=== PATIENT | male | born 1965 | race Caucasian/White ===

== ENCOUNTER 2017-10-26 12:15 | Day surgery (SDC) | payer OTHER, MEDICAID ==
[~2017-10-26 12:15] MED LIST: CEFAZOLIN 1 GM INJ
[2017-10-26 13:46] LABS: ADD MAN DIFF? NO
[2017-10-26 13:50] LABS: BASOPHILS % 0.4 % (0.0-2.0); EOSINOPHILS # 0.1 10^3/ul (0.0-0.5); EOSINOPHILS % 1.1 % (0.0-7.0); HEMATOCRIT 42.2 % (42.0-52.0); HEMOGLOBIN 14.1 g/dl (14.0-18.0); LYMPHOCYTES # 2.6 10^3/ul (0.8-2.9); MEAN CORPUSCULAR HEMOGLOBIN 32.3 pg (29.0-33.0); MEAN CORPUSCULAR HGB CONC 33.4 g/dl (32.0-37.0); MEAN CORPUSCULAR VOLUME 96.8 fl (82.0-101.0); MEAN PLATELET VOLUME 10.6 fl (7.4-10.4); MONOCYTE # 0.5 10^3/ul (0.3-0.9); NEUTROPHIL # 5.1 10^3/ul (1.6-7.5); PLATELET COUNT 181 10^3/UL (140-415); RED BLOOD COUNT 4.36 10^6/ul (4.70-6.10); RED CELL DISTRIBUTION WIDTH 13.7 % (11.5-14.5)
[2017-10-26 13:50] LABS: WHITE BLOOD COUNT 8.4 10^3/ul (4.8-10.8)
[2017-10-26 13:54] LABS: INR 0.98; PROTIME 13.1 Sec (11.9-14.9)
[2017-10-26 13:55] LABS: ANION GAP 11 (8-16); BLOOD UREA NITROGEN 19 mg/dl (7-20); CALCIUM 9.4 mg/dl (8.4-10.2); CARBON DIOXIDE 26 mmol/L (21-31); CHLORIDE 108 mmol/L (97-110); CREATININE 1.02 mg/dl (0.61-1.24); GLUCOSE 100 mg/dl (70-220); PARTIAL THROMBOPLASTIN TIME 30.5 Sec (25.0-35.0); POTASSIUM 4.2 mmol/L (3.5-5.1); SODIUM 141 mmol/L (135-144)
[2017-10-26] MEDS ORDERED: CEFAZOLIN 2 GM/50 ML (PMX) 50 ML IVPB (14:01)
[2017-10-26] MEDS ORDERED: LACTATED RINGER'S 1,000 ML IV* (14:30)
[2017-10-26] MEDS ORDERED: MEPERIDINE 25 MG INJ IV (15:00)
[2017-10-26] MEDS ORDERED: hydrALAzine 20 MG INJ IV (15:00)
[2017-10-26] MEDS ORDERED: HYDROmorphONE 1 MG/5 ML IV SYRINGE IV (15:00)
[2017-10-26] MEDS ORDERED: PROCHLORPERAZINE 10 MG INJ IV (15:00)
[2017-10-26] MEDS ORDERED: FENTAnyl 50 MCG/ML VIAL IV (15:00)
[2017-10-26] MEDS ORDERED: ONDANSETRON 4 MG INJ IV (15:00)
[2017-10-26] MEDS ORDERED: DIPHENHYDRAMINE 50 MG INJ IV (15:00)
[2017-10-26] MEDS ORDERED: BUPIVACAINE 0.5% (SDV) 30 ML INJ (15:01)
[2017-10-26] MEDS ORDERED: LIDOCAINE 0.5% (MDV) 50 ML INJ (15:09)
[2017-10-26] MEDS ORDERED: LIDOCAINE 2% (SDV) 5 ML INJ (16:01)
[2017-10-26] MEDS ORDERED: PROPOFOL 20 ML (16:01)
[2017-10-26] MEDS ORDERED: MIDAZOLAM 1 MG/ML 2 ML INJ (16:01)
[2017-10-26] MEDS ORDERED: ROPIVACAINE 0.5 % 30 ML VIAL (16:11)
[2017-10-26] MEDS ORDERED: FAMOTIDINE 20 MG INJ (16:44)
[2017-10-26] MEDS ORDERED: ONDANSETRON 4 MG INJ (16:44)
[2017-10-26] MEDS ORDERED: DEXAMETHASONE 4 MG/ML 1 ML INJ (16:44)
[2017-10-26] MEDS ORDERED: FENTAnyl 50 MCG/ML VIAL (16:58)
[2017-10-26] MEDS ORDERED: EPHEDrine SULFATE 50 MG/5 ML SYG (18:02)
[2017-10-26] MEDS: OXYCODONE/ACETAMINOPHEN (5/325) TAB PO (18:54)
== END 2017-10-26 20:34 | disposition home or self-care (01) ==
LOC: SDS 12:15
DX: G56.02 Carpal tunnel syndrome, left upper limb (principal); G56.22 Lesion of ulnar nerve, left upper limb; M67.844 Other specified disorders of tendon, left hand; M67.834 Other specified disorders of tendon, left wrist
CPT/HCPCS: 25295; 80048; 85025; 85610; 85730